=== PATIENT | female | born 1990 | race Caucasian/White ===

== ENCOUNTER 2016-08-14 07:52 | Emergency (ER) | payer OTHER ==
[~2016-08-14] VITALS: Ht 170.2 cm; Wt 145.0 kg
[~2016-08-14 07:52] MED LIST: ALBUTEROL SUL0.083 % IN; BACTRIM DS1 TAB OR; BENTYL20 MG OR; CEPHALEXIN500 MG PO; CIPRO500 MG OR; FIORICET PO; FLONASE NASAL50 MCG; IMITREX25 MG PO; LORTAB 5 OR; Levaquin PO; MACRODANTIN100 MG OR; MEDDOSEPAK PO; NAPROSYN500 MG PO; NAPROXEN500 MG OR; NO HOME MEDS; PHENTERMINE37.5 M1 PO; PREDNISONE5 MG PO; PRENATAL VITAMINS PO; PRENATAL1 TAB OR; PROAIR HFA IN; PROMETHAZINE25 MG OR; PYRIDIUM200 MG OR; QVAR80 MCG IN; ROBITUSSIN AC10 ML PO; TESSALON PER100 MG PO; TOPAMAX25 MG PO; TYLENOL500 MG OR; [UNRECOGNIZED DRUG - REMARK]
[2016-08-14] MEDS ORDERED: TOPAMAX50 M1 PO (07:58)
[2016-08-14] MEDS ORDERED: FLEXERIL PO (08:10)
[2016-08-14] MEDS ORDERED: MOTRIN800 MG PO (08:10)
[2016-08-14] MEDS ORDERED: TRAMADOL HYDROC50 MG PO (08:10)
[2016-08-14] MEDS ORDERED: PERCOCET 5/325M1 TAB PO (09:26)
[2016-08-14 09:33] VITALS: BP 116/56
== END 2016-08-14 09:33 | disposition home or self-care (01) | DRG 563 ==
LOC: ED 07:52
DX: S39.012A Strain of muscle, fascia and tendon of lower back, initial encounter (principal); G43.909 Migraine, unspecified, not intractable, without status migrainosus; J45.909 Unspecified asthma, uncomplicated; X50.0XXA Overexertion from strenuous movement or load, initial encounter

== ENCOUNTER 2016-08-29 09:34 | Emergency (ER) | payer SELFPAY ==
[~2016-08-29] VITALS: Ht 170.2 cm; Wt 145.0 kg
[~2016-08-29 09:34] MED LIST changes: +FLEXERIL PO; +MOTRIN800 MG PO; +PERCOCET 5/325M1 TAB PO; +TOPAMAX50 M1 PO; +TRAMADOL HYDROC50 MG PO
[2016-08-29] MEDS ORDERED: LORTAB 5-325 MG1 TAB PO (12:00)
[2016-08-29 12:10] VITALS: BP 139/77
== END 2016-08-29 12:10 | disposition home or self-care (01) | DRG 552 ==
LOC: ED 09:34
DX: M54.5 Low back pain (principal); M25.551 Pain in right hip; M25.552 Pain in left hip

== ENCOUNTER 2018-11-13 18:14 | Emergency (ER) | payer OTHER ==
[~2018-11-13] VITALS: Ht 170.2 cm; Wt 127.3 kg
[~2018-11-13 18:14] MED LIST changes: +LORTAB 5-325 MG1 TAB PO
[2018-11-13] MEDS ORDERED: ALBUTEROL SUL0.083 % IN (19:00)
[2018-11-13 19:34] LABS: HEMATOCRIT 37.7 % (37.0-47.0); IMMATURE GRANULOCYTES 0.3 % (0.0-5.0); MEAN CELL VOLUME 82.7 fL CALC (80.0-100.0); MEAN CORPUSCULAR HGB 26.3 pG CALC (26.0-32.0); MEAN CORPUSCULAR HGB CONC 31.8 g/L CALC (32.0-36.0); NEUT# 7.74 thou/uL (2.00-7.15); RED BLOOD COUNT 4.56 mill/uL (4.20-5.60); RED CELL DISTRI WIDTH 14.4 % (11.5-15.5)
[2018-11-13 19:52] LABS: ALBUMIN 4.3 g/dL (3.2-5.0); ALKALINE PHOSPHATASE 71 u/l (38-126); ANION GAP 16 (6-22 (CALC)); BILIRUBIN, TOTAL 0.6 mg/dL (0.0-1.4); BUN 14 mg/dL (7-17); BUN/CREATININE RATIO 22 (12-20 (CALC)); CARBON DIOXIDE 21 mmol/l (22-30); CHLORIDE 105 mmol/l (95-108); CREATININE 0.7 mg/dL (0.5-1.0); GFR > 60 ML/MIN (>=60 (CALC)); GFR FOR AFR.AMER. > 60 ML/MIN (>=60 (CALC)); POTASSIUM 3.4 mmol/l (3.5-5.1); SGOT/AST 17 u/l (14-36); SODIUM 139 mmol/l (137-146); TOTAL PROTEIN 7.4 g/dL (6.3-8.2)
[2018-11-13 20:04] LABS: MYOGLOBIN 45 ng/mL (0 - 62)
[2018-11-13 20:31] LABS: URINE BILIRUBIN - DIPSTICK NEGATIVE (NEGATIVE); URINE BLOOD DIPSTICK NEGATIVE (NEGATIVE); URINE COLOR YELLOW; URINE GLUCOSE - DIPSTICK NEGATIVE (NEGATIVE); URINE KETONE TRACE mg/dL (NEGATIVE); URINE LEUK ESTERASE NEGATIVE (NEGATIVE); URINE NITRITE - DIPSTICK NEGATIVE (Negative); URINE PROTEIN - DIPSTICK NEGATIVE (NEG-TRACE); URINE UROBILINOGEN - DIPSTICK 0.2 E.U./dL (0.2)
[2018-11-13 23:17] VITALS: BP 118/62
== END 2018-11-13 23:29 | disposition home or self-care (01) ==
LOC: ED 18:14
PROVIDERS: Emergency Medicine
DX: R07.89 Other chest pain (principal)
CPT/HCPCS: Q9967

== ENCOUNTER 2019-02-07 08:56 | Emergency (ER) | payer OTHER ==
[~2019-02-07] VITALS: Ht 170.2 cm; Wt 110.0 kg
[2019-02-07] MEDS ORDERED: ONDANSETRON4 MG PO (10:52)
[2019-02-07] MEDS ORDERED: TAM75CAP PO (10:52)
[2019-02-07 10:55] VITALS: BP 144/62
== END 2019-02-07 10:58 | disposition home or self-care (01) ==
LOC: ED 08:56
DX: J11.1 Influenza due to unidentified influenza virus with other respiratory manifestations (principal); J45.909 Unspecified asthma, uncomplicated

== ENCOUNTER 2020-02-24 09:29 | Emergency (ER) | payer SELFPAY ==
[~2020-02-24] VITALS: Ht 170.2 cm; Wt 136.1 kg
[~2020-02-24 09:29] MED LIST changes: +ONDANSETRON4 MG PO; +TAM75CAP PO
[2020-02-24 10:03] LABS: HEMATOCRIT 40.3 % (37.0-47.0); HEMOGLOBIN 12.3 g/dl (12.0-16.0); IMMATURE GRANULOCYTES 0.4 % (0.0-5.0); MEAN CELL VOLUME 82.6 fL CALC (80.0-100.0); MEAN CORPUSCULAR HGB 25.2 pG CALC (26.0-32.0); MEAN CORPUSCULAR HGB CONC 30.5 g/dL CAL (32.0-36.0); NEUT# 6.47 thou/uL (2.00-7.15); RED BLOOD COUNT 4.88 mill/uL (4.20-5.60); RED CELL DISTRI WIDTH 14.6 % (11.5-15.5)
[2020-02-24 10:19] LABS: HCG SERUM/URINE (NEG/POS) NEGATIVE (NEGATIVE)
[2020-02-24 10:23] LABS: ALBUMIN 4.5 g/dL (3.2-5.0); ALKALINE PHOSPHATASE 74 u/l (38-126); ANION GAP 15 (6-22 (CALC)); BILIRUBIN, TOTAL 0.4 mg/dL (0.0-1.4); BUN 16 mg/dL (7-17); BUN/CREATININE RATIO 20 (12-20 (CALC)); CARBON DIOXIDE 22 mmol/l (22-30); CHLORIDE 105 mmol/l (95-108); CREATININE 0.8 mg/dL (0.5-1.0); GFR > 60 ML/MIN (>=60 (CALC)); GFR FOR AFR.AMER. > 60 ML/MIN (>=60 (CALC)); SGOT/AST 41 u/l (14-36); SODIUM 138 mmol/l (137-146); TOTAL PROTEIN 8.4 g/dL (6.3-8.2)
[2020-02-24] MEDS ORDERED: MEDDOSEPAK PO (10:48)
[2020-02-24] MEDS ORDERED: KEFLEX500 M1 PO (10:48)
[2020-02-24] MEDS ORDERED: ROBITUSSIN AC10 ML PO (10:52)
[2020-02-24 10:56] VITALS: BP 133/74
== END 2020-02-24 11:11 | disposition home or self-care (01) | DRG 153 ==
LOC: ED 09:29
PROVIDERS: Emergency Medicine
DX: J06.9 Acute upper respiratory infection, unspecified (principal); J45.909 Unspecified asthma, uncomplicated; Z20.828 Contact with and (suspected) exposure to other viral communicable diseases

== ENCOUNTER 2020-05-14 06:56 | Emergency (ER) | payer MEDICAID ==
[~2020-05-14] VITALS: Ht 170.2 cm; Wt 136.0 kg
[~2020-05-14 06:56] MED LIST changes: +KEFLEX500 M1 PO
[2020-05-14] MEDS ORDERED: ERYTHROMYCIN O3.5 GM OU (07:46)
[2020-05-14 07:58] VITALS: BP 148/71
== END 2020-05-14 08:03 | disposition home or self-care (01) ==
LOC: ED 06:56
DX: J45.909 Unspecified asthma, uncomplicated (principal); H10.9 Unspecified conjunctivitis

== ENCOUNTER 2020-07-10 15:16 | Emergency (ER) | payer MEDICAID ==
[~2020-07-10] VITALS: Ht 170.2 cm; Wt 138.0 kg
[~2020-07-10 15:16] MED LIST changes: +ERYTHROMYCIN O3.5 GM OU
[2020-07-10 16:50] LABS: URINE BILIRUBIN - DIPSTICK NEGATIVE (NEGATIVE); URINE BLOOD DIPSTICK TRACE-INTACT (NEGATIVE); URINE COLOR YELLOW; URINE GLUCOSE - DIPSTICK NEGATIVE (NEGATIVE); URINE KETONE TRACE mg/dL (NEGATIVE); URINE LEUK ESTERASE NEGATIVE (NEGATIVE); URINE PROTEIN - DIPSTICK NEGATIVE (NEG-TRACE); URINE UROBILINOGEN - DIPSTICK 0.2 E.U./dL (0.2)
[2020-07-10 16:51] LABS: URINE NITRITE - DIPSTICK NEGATIVE (Negative)
[2020-07-10 16:53] LABS: HCG SERUM/URINE (NEG/POS) NEGATIVE (NEGATIVE)
[2020-07-10 17:07] LABS: HEMATOCRIT 42.5 % (37.0-47.0); IMMATURE GRANULOCYTES 0.4 % (0.0-5.0); MEAN CELL VOLUME 81.9 fL CALC (80.0-100.0); MEAN CORPUSCULAR HGB CONC 30.6 g/dL CAL (32.0-36.0); NEUT# 6.98 thou/uL (2.00-7.15); RED BLOOD COUNT 5.19 mill/uL (4.20-5.60); RED CELL DISTRI WIDTH 15.5 % (11.5-15.5)
[2020-07-10 17:27] LABS: ALBUMIN 4.8 g/dL (3.2-5.0); ALKALINE PHOSPHATASE 83 u/l (38-126); AMYLASE 63 u/l (30-110); BUN 13 mg/dL (7-17); BUN/CREATININE RATIO 15 (12-20 (CALC)); CHLORIDE 99 mmol/l (95-108); CREATININE 0.9 mg/dL (0.5-1.0); GFR > 60 ML/MIN (>=60 (CALC)); GFR FOR AFR.AMER. > 60 ML/MIN (>=60 (CALC)); LIPASE 87 u/l (23-300); POTASSIUM 3.9 mmol/l (3.5-5.1); SGOT/AST 23 u/l (14-36); SODIUM 138 mmol/l (137-146); TOTAL PROTEIN 8.6 g/dL (6.3-8.2)
[2020-07-10 17:28] LABS: ANION GAP 15 (6-22 (CALC)); BILIRUBIN, TOTAL 0.6 mg/dL (0.0-1.4); CARBON DIOXIDE 28 mmol/l (22-30)
[2020-07-10] MEDS ORDERED: ZITHROMAX250 MG PO (20:51)
[2020-07-10] MEDS ORDERED: MEDDOSEPAK PO (20:51)
[2020-07-10] MEDS ORDERED: ROBITUSSIN AC10 ML PO (20:52)
[2020-07-10 21:00] VITALS: BP 122/64
[2020-07-10] MEDS ORDERED: ONDANSETRON4 MG PO (21:05)
== END 2020-07-10 21:18 | disposition home or self-care (01) ==
LOC: ED 15:16
DX: J06.9 Acute upper respiratory infection, unspecified (principal); R11.2 Nausea with vomiting, unspecified; J45.909 Unspecified asthma, uncomplicated; Z20.822 Contact with and (suspected) exposure to COVID-19
CPT/HCPCS: Q9967

== ENCOUNTER 2020-12-04 09:04 | Emergency (ER) | payer MEDICAID ==
[~2020-12-04 09:04] MED LIST changes: +ZITHROMAX250 MG PO
[2020-12-04 09:33] LABS: URINE BILIRUBIN - DIPSTICK NEGATIVE (NEGATIVE); URINE COLOR YELLOW; URINE GLUCOSE - DIPSTICK NEGATIVE (NEGATIVE); URINE KETONE NEGATIVE (NEGATIVE); URINE LEUK ESTERASE NEGATIVE (NEGATIVE); URINE PH 5.5 (4.5-8.0); URINE PROTEIN - DIPSTICK NEGATIVE (NEG-TRACE); URINE SPECIFIC GRAVITY >=1.030; URINE UROBILINOGEN - DIPSTICK 0.2 E.U./dL (0.2)
[2020-12-04 09:37] LABS: URINE BLOOD DIPSTICK SMALL (NEGATIVE); URINE EPITHELIAL CELLS FEW EPI/hpf (0-FEW); URINE NITRITE - DIPSTICK NEGATIVE (Negative)
[2020-12-04 09:38] LABS: HCG SERUM/URINE (NEG/POS) NEGATIVE (NEGATIVE)
[2020-12-04] MEDS ORDERED: KEFLEX500 MG PO (10:06)
[2020-12-04 10:15] VITALS: BP 110/70
== END 2020-12-04 10:15 | disposition home or self-care (01) ==
LOC: ED 09:04
PROVIDERS: Emergency Medicine
DX: J45.909 Unspecified asthma, uncomplicated (principal); Z20.822 Contact with and (suspected) exposure to COVID-19

== ENCOUNTER 2021-02-13 18:47 | Emergency (ER) | payer MEDICAID ==
[~2021-02-13] VITALS: Ht 170.2 cm; Wt 140.0 kg
[~2021-02-13 18:47] MED LIST changes: +KEFLEX500 MG PO
[2021-02-13 19:58] LABS: HEMATOCRIT 40.3 % (37.0-47.0); HEMOGLOBIN 12.5 g/dl (12.0-16.0); IMMATURE GRANULOCYTES 0.5 % (0.0-5.0); MEAN CELL VOLUME 82.1 fL CALC (80.0-100.0); MEAN CORPUSCULAR HGB 25.5 pG CALC (26.0-32.0); NEUT# 6.3 thou/uL (2.00-7.15); RED BLOOD COUNT 4.91 mill/uL (4.20-5.60); RED CELL DISTRI WIDTH 15.5 % (11.5-15.5)
[2021-02-13 20:03] LABS: HCG SERUM/URINE (NEG/POS) NEGATIVE (NEGATIVE)
[2021-02-13 20:04] LABS: ALBUMIN 4.5 g/dL (3.2-5.0); ALKALINE PHOSPHATASE 101 u/l (38-126); ANION GAP 13 (6-22 (CALC)); BILIRUBIN, TOTAL 0.7 mg/dL (0.0-1.4); BUN 11 mg/dL (7-17); BUN/CREATININE RATIO 11 (12-20 (CALC)); CARBON DIOXIDE 25 mmol/l (22-30); CHLORIDE 104 mmol/l (95-108); GFR > 60 ML/MIN (>=60 (CALC)); GFR FOR AFR.AMER. > 60 ML/MIN (>=60 (CALC)); POTASSIUM 3.7 mmol/l (3.5-5.1); SGOT/AST 23 u/l (14-36); SODIUM 138 mmol/l (137-146); TOTAL PROTEIN 8.4 g/dL (6.3-8.2)
[2021-02-13] MEDS ORDERED: PHENTERMINE37.5 MG PO (20:14)
[2021-02-13] MEDS ORDERED: TOPIRAMATE50 MG PO (20:15)
[2021-02-13] MEDS ORDERED: CEPHALEXIN500 M1 PO (20:16)
[2021-02-13] MEDS ORDERED: GUAIATUSSIN PO (20:17)
[2021-02-13] MEDS ORDERED: ALBUTEROL SUL0.083 % IN (20:19)
[2021-02-13] MEDS ORDERED: MEDDOSEPAK PO (21:08)
[2021-02-13] MEDS ORDERED: VENTOLIN HFA IN (21:08)
[2021-02-13] MEDS ORDERED: ZPAK PO (21:08)
[2021-02-13 21:33] VITALS: BP 110/59
== END 2021-02-13 21:43 | disposition home or self-care (01) ==
LOC: ED 18:47
DX: J45.901 Unspecified asthma with (acute) exacerbation (principal); T48.6X6A Underdosing of antiasthmatics, initial encounter; Z91.128 Patient's intentional underdosing of medication regimen for other reason; Z20.822 Contact with and (suspected) exposure to COVID-19

== ENCOUNTER 2021-05-19 08:55 | Emergency (ER) | payer MEDICAID ==
[~2021-05-19] VITALS: Ht 170.2 cm; Wt 145.5 kg
[~2021-05-19 08:55] MED LIST changes: +CEPHALEXIN500 M1 PO; +GUAIATUSSIN PO; +PHENTERMINE37.5 MG PO; +TOPIRAMATE50 MG PO; +VENTOLIN HFA IN; +ZPAK PO
[2021-05-19 09:29] LABS: HEMATOCRIT 38.8 % (37.0-47.0); HEMOGLOBIN 11.7 g/dl (12.0-16.0); IMMATURE GRANULOCYTES 0.3 % (0.0-5.0); MEAN CORPUSCULAR HGB 25.3 pG CALC (26.0-32.0); MEAN CORPUSCULAR HGB CONC 30.2 g/dL CAL (32.0-36.0); NEUT# 4.83 thou/uL (2.00-7.15); RED BLOOD COUNT 4.62 mill/uL (4.20-5.60)
[2021-05-19 09:45] LABS: ALKALINE PHOSPHATASE 72 u/l (38-126); ANION GAP 14 (6-22 (CALC)); BUN 11 mg/dL (7-17); BUN/CREATININE RATIO 15 (12-20 (CALC)); CARBON DIOXIDE 23 mmol/l (22-30); CHLORIDE 103 mmol/l (95-108); CREATININE 0.8 mg/dL (0.5-1.0); GFR > 60 ML/MIN (>=60 (CALC)); GFR FOR AFR.AMER. > 60 ML/MIN (>=60 (CALC)); POTASSIUM 3.8 mmol/l (3.5-5.1); SGOT/AST 33 u/l (14-36); SODIUM 137 mmol/l (137-146); TOTAL PROTEIN 7.6 g/dL (6.3-8.2)
[2021-05-19 09:47] LABS: BILIRUBIN, TOTAL 0.4 mg/dL (0.0-1.4)
[2021-05-19] MEDS ORDERED: IPRATROPIU0.5 MG/3 M IN (09:54)
[2021-05-19] MEDS ORDERED: PREDNISONE50 MG PO (09:54)
[2021-05-19] MEDS ORDERED: DOXYCYCL HYC100 M4 PO (09:54)
[2021-05-19 11:30] VITALS: BP 148/63
== END 2021-05-19 11:30 | disposition home or self-care (01) ==
LOC: ED 08:55
PROVIDERS: Family Medicine
DX: J45.909 Unspecified asthma, uncomplicated (principal); E66.9 Obesity, unspecified; Z68.43 Body mass index [BMI] 50.0-59.9, adult; Z20.822 Contact with and (suspected) exposure to COVID-19

== ENCOUNTER 2021-05-21 16:37 | Emergency (ER) | payer MEDICAID ==
[~2021-05-21] VITALS: Ht 170.2 cm; Wt 145.0 kg
[~2021-05-21 16:37] MED LIST changes: +DOXYCYCL HYC100 M4 PO; +IPRATROPIU0.5 MG/3 M IN; +PREDNISONE50 MG PO
[2021-05-21 17:43] LABS: URINE BILIRUBIN - DIPSTICK NEGATIVE (NEGATIVE); URINE BLOOD DIPSTICK NEGATIVE (NEGATIVE); URINE COLOR YELLOW; URINE GLUCOSE - DIPSTICK NEGATIVE (NEGATIVE); URINE KETONE NEGATIVE (NEGATIVE); URINE LEUK ESTERASE NEGATIVE (NEGATIVE); URINE PROTEIN - DIPSTICK NEGATIVE (NEG-TRACE); URINE SPECIFIC GRAVITY >=1.030; URINE UROBILINOGEN - DIPSTICK 0.2 E.U./dL (0.2)
[2021-05-21 17:45] LABS: URINE NITRITE - DIPSTICK NEGATIVE (Negative)
[2021-05-21 17:48] LABS: HEMATOCRIT 37.1 % (37.0-47.0); HEMOGLOBIN 11.2 g/dl (12.0-16.0); IMMATURE GRANULOCYTES 0.7 % (0.0-5.0); MEAN CELL VOLUME 83.2 fL CALC (80.0-100.0); MEAN CORPUSCULAR HGB 25.1 pG CALC (26.0-32.0); MEAN CORPUSCULAR HGB CONC 30.2 g/dL CAL (32.0-36.0); NEUT# 10.61 thou/uL (2.00-7.15); RED BLOOD COUNT 4.46 mill/uL (4.20-5.60); RED CELL DISTRI WIDTH 15.5 % (11.5-15.5)
[2021-05-21 17:56] LABS: ALBUMIN 3.9 g/dL (3.2-5.0); ALKALINE PHOSPHATASE 69 u/l (38-126); ANION GAP 11 (6-22 (CALC)); BILIRUBIN, TOTAL 0.3 mg/dL (0.0-1.4); BUN 19 mg/dL (7-17); BUN/CREATININE RATIO 26 (12-20 (CALC)); CARBON DIOXIDE 24 mmol/l (22-30); CHLORIDE 107 mmol/l (95-108); CREATININE 0.7 mg/dL (0.5-1.0); GFR > 60 ML/MIN (>=60 (CALC)); GFR FOR AFR.AMER. > 60 ML/MIN (>=60 (CALC)); SGOT/AST 28 u/l (14-36); SODIUM 138 mmol/l (137-146); TOTAL PROTEIN 7.4 g/dL (6.3-8.2)
--- NOTE | 2021-05-21 20:55 | NUR ---
BREATHING TREATMENT GIVEN.
[2021-05-21] MEDS ORDERED: MEDDOSEPAK PO (22:55)
[2021-05-21] MEDS ORDERED: HYCODAN1 ML PO (22:55)
[2021-05-21 23:49] VITALS: BP 151/70
== END 2021-05-21 23:56 | disposition home or self-care (01) ==
LOC: ED 16:37
PROVIDERS: Emergency Medicine
DX: J45.901 Unspecified asthma with (acute) exacerbation (principal); Z20.822 Contact with and (suspected) exposure to COVID-19
CPT/HCPCS: J3475

== ENCOUNTER 2022-06-23 10:19 | Emergency (ER) | payer MEDICAID ==
[~2022-06-23] VITALS: Ht 170.2 cm; Wt 125.0 kg
[2022-06-23] VITALS (10 sets, daily range): BP systolic 117–140; BP diastolic 70–94
[~2022-06-23 10:19] MED LIST changes: +HYCODAN1 ML PO
[2022-06-23 10:58] LABS: BASO% 0.3 % (0-3); HEMATOCRIT 41.6 % (37.0-47.0); HEMOGLOBIN 12.7 g/dl (12.0-16.0); IMMATURE GRANULOCYTES 0.5 % (0.0-5.0); MEAN CELL VOLUME 82.4 fL CALC (80.0-100.0); MEAN CORPUSCULAR HGB 25.1 pG CALC (26.0-32.0); MEAN CORPUSCULAR HGB CONC 30.5 g/dL CAL (32.0-36.0); MONO% 12.5 % (2-13); NEUT# 4.6 thou/uL (2.00-7.15); NEUT% 70.7 % (42-76); RED BLOOD COUNT 5.05 mill/uL (4.20-5.60); RED CELL DISTRI WIDTH 16.2 % (11.5-15.5)
[2022-06-23 11:07] LABS: ALBUMIN 4.6 g/dL (3.2-5.0); ALKALINE PHOSPHATASE 63 u/l (38-126); BILIRUBIN, TOTAL 0.2 mg/dL (0.02-1.3); BUN 8 mg/dL (7-17); BUN/CREATININE RATIO 8 (12-20 (CALC)); CHLORIDE 104 mmol/l (95-108); GFR FOR AFR.AMER. > 60 ML/MIN (>=60 (CALC)); GFR OTHER RACES > 60 ML/MIN (>=60 (CALC)); SGOT/AST 33 u/l (14-36); SODIUM 136 mmol/l (137-146); TOTAL PROTEIN 7.9 g/dL (6.3-8.2)
[2022-06-23 11:10] LABS: ANION GAP 13 (6-22 (CALC)); CARBON DIOXIDE 22 mmol/l (22-30); POTASSIUM 3.2 mmol/l (3.5-5.1)
[2022-06-23] MEDS ORDERED: PREDNISONE50 MG PO (14:21)
== END 2022-06-23 14:44 | disposition home or self-care (01) ==
LOC: ED 10:19
PROVIDERS: Family Medicine
DX: J45.901 Unspecified asthma with (acute) exacerbation (principal); J11.1 Influenza due to unidentified influenza virus with other respiratory manifestations; E66.9 Obesity, unspecified; Z20.822 Contact with and (suspected) exposure to COVID-19
CPT/HCPCS: J3475

== ENCOUNTER 2022-07-09 21:51 | Emergency (ER) | payer MEDICAID ==
[~2022-07-09] VITALS: Ht 170.2 cm; Wt 127.0 kg
[2022-07-09] VITALS (8 sets, daily range): BP systolic 102–152; BP diastolic 40–104
[~2022-07-09 21:51] MED LIST changes: +PREDNISONE10 MG PO; +SINGULAIR10 MG PO; +WELLBUTRIN100 M2 PO
[2022-07-09 23:22] LABS: BASO% 0.1 % (0-3); EOS% 0.1 % (0-8); HEMATOCRIT 39.9 % (37.0-47.0); HEMOGLOBIN 12.3 g/dl (12.0-16.0); IMMATURE GRANULOCYTES 0.4 % (0.0-5.0); LYMPH% 9.8 % (15-41); MEAN CELL VOLUME 81.8 fL CALC (80.0-100.0); MEAN CORPUSCULAR HGB 25.2 pG CALC (26.0-32.0); MEAN CORPUSCULAR HGB CONC 30.8 g/dL CAL (32.0-36.0); MONO% 2.4 % (2-13); NEUT# 10.42 thou/uL (2.00-7.15); NEUT% 87.2 % (42-76); RED BLOOD COUNT 4.88 mill/uL (4.20-5.60); RED CELL DISTRI WIDTH 16.9 % (11.5-15.5)
[2022-07-10 00:29] VITALS: BP 102/61
[2022-07-10] MEDS ORDERED: IPRATROPIU0.5 MG/3 M IN (18:09)
== END 2022-07-10 01:52 | disposition home or self-care (01) ==
LOC: ED 21:51
PROVIDERS: Family Medicine
DX: J45.901 Unspecified asthma with (acute) exacerbation (principal); Z20.822 Contact with and (suspected) exposure to COVID-19
CPT/HCPCS: J3475

== ENCOUNTER 2023-05-27 13:14 | Observation (INO) | payer BC, MEDICAID ==
[2023-05-27] VITALS (24 sets, daily range): BP systolic 69–144; BP diastolic 36–124
[~2023-05-27] VITALS: Ht 170.2 cm; Wt 99.7 kg
[2023-05-27] MEDS ORDERED: MAGNESIUM SULFATE HEPTAHYDRATE 50 ML IV ONE (13:25)
[2023-05-27] MEDS ORDERED: methylPREDNISolone SODIUM SUCC 125 MG/2 ML SDV IV ONE (13:25)
[2023-05-27] MEDS ORDERED: IPRATROPIUM-Albuterol 0.5MG-2.5MG/3 ML NEB ONE ×2 (13:25→16:10)
[2023-05-27 13:42] LABS: BASO% 0.1 % (0-3); EOS% 0.7 % (0-8); HEMATOCRIT 39.7 % (37.0-47.0); HEMOGLOBIN 12.5 g/dl (12.0-16.0); IMMATURE GRANULOCYTES 0.1 % (0.0-5.0); MEAN CELL VOLUME 82.7 fL CALC (80.0-100.0); MEAN CORPUSCULAR HGB CONC 31.5 g/dL CAL (32.0-36.0); MONO% 9.7 % (2-13); NEUT# 3.62 thou/uL (2.00-7.15); NEUT% 47.3 % (42-76); RED BLOOD COUNT 4.8 mill/uL (4.20-5.60); RED CELL DISTRI WIDTH 15.1 % (11.5-15.5)
[2023-05-27] MEDS ORDERED: SODIUM CHLORIDE 0.9% 1,000 ML IV ONE (13:50)
[2023-05-27 13:53] LABS: ALBUMIN 4.2 g/dL (3.2-5.0); ALKALINE PHOSPHATASE 57 u/l (38-126); ANION GAP 13 (6-22 (CALC)); BILIRUBIN, TOTAL 0.4 mg/dL (0.02-1.3); BUN 8 mg/dL (7-17); BUN/CREATININE RATIO 10 (12-20 (CALC)); CARBON DIOXIDE 24 mmol/l (22-30); CHLORIDE 106 mmol/l (95-108); CREATININE 0.8 mg/dL (0.5-1.0); GFR FOR AFR.AMER. > 60 ML/MIN (>=60 (CALC)); GFR OTHER RACES > 60 ML/MIN (>=60 (CALC)); POTASSIUM 3.4 mmol/l (3.5-5.1); SODIUM 139 mmol/l (137-146); TOTAL PROTEIN 7.4 g/dL (6.3-8.2)
[2023-05-27] MEDS ORDERED: guaiFENesin-CODEINE 200-20 MG/10 ML UDC PO ONE (13:55)
[2023-05-27 13:56] LABS: SGOT/AST 50 u/l (14-36)
[2023-05-27 14:01] LABS: LYMPH% 42.1 % (15-41)
[2023-05-27] MEDS ORDERED: KETOROLAC TROMETHAMINE 30 MG/ML SDV IV ONE (15:50)
[2023-05-27] MEDS ORDERED: AZITHROMYCIN 500 MG in SODIUM CHLORIDE 0.9% 250 ML IV ONE (16:05)
[2023-05-27] MEDS ORDERED: ALBUTEROL SULFATE 8 GM INH IN PRN (16:35)
[2023-05-27] MEDS ORDERED: MAGNESIUM HYDROXIDE 30 ML UDC PO PRN (16:35)
[2023-05-27] MEDS ORDERED: SODIUM CHLORIDE 0.9% 1,000 ML IV PRN (16:35)
[2023-05-27] MEDS ORDERED: ACETAMINOPHEN 325 MG/TAB PO PRN (16:35)
[2023-05-27] MEDS ORDERED: KETOROLAC TROMETHAMINE 15 MG/ML SDV IV PRN (16:40)
[2023-05-27] MEDS ORDERED: GUAIFENESIN 200 MG/10 ML UDC PO PRN (17:05)
[2023-05-27] MEDS ORDERED: LISINOPRIL20 M1 PO (18:09)
[2023-05-27] MEDS ORDERED: INTUNIV4 MG PO (18:09)
[2023-05-27] MEDS ORDERED: LISINOPRIL 20 MG/TAB PO ONE (18:15)
[2023-05-27] MEDS ORDERED: IPRATROPIUM-Albuterol 0.5MG-2.5MG/3 ML NEB SCH (19:00)
[2023-05-27] MEDS ORDERED: ENOXAPARIN SODIUM 40 MG/0.4 ML SYR SC SCH (21:00)
[2023-05-27] MEDS ORDERED: MONTELUKAST SODIUM 10 MG/TAB PO SCH (21:00)
[2023-05-27] MEDS ORDERED: TOPIRAMATE 100 MG TAB PO SCH (21:00)
[2023-05-27] MEDS ORDERED: MELATONIN 3 MG/TAB PO SCH (21:00)
[2023-05-27] MEDS ORDERED: methylPREDNISolone Sod Succ 40 MG/ML SDV IV SCH (21:00)
[2023-05-28 00:17] LABS: URINE BILIRUBIN - DIPSTICK Negative (NEGATIVE); URINE BLOOD DIPSTICK Negative (NEGATIVE); URINE GLUCOSE - DIPSTICK 500 mg/dL (NEGATIVE); URINE KETONE Trace mg/dL (NEGATIVE); URINE LEUK ESTERASE Negative (NEGATIVE); URINE NITRITE - DIPSTICK Negative (Negative); URINE PH 5.5 (4.5-8.0); URINE PROTEIN - DIPSTICK Negative (NEG-TRACE); URINE UROBILINOGEN - DIPSTICK 0.2 E.U./dL (0.2)
[2023-05-28 00:23] LABS: URINE COLOR Yellow
[2023-05-28] MEDS ORDERED: IPRATROPIUM-Albuterol 0.5MG-2.5MG/3 ML ONE (03:39)
[2023-05-28 05:00] VITALS: BP 122/83
[2023-05-28 06:32] LABS: BASO% 0.2 % (0-3); HEMOGLOBIN 10.8 g/dl (12.0-16.0); IMMATURE GRANULOCYTES 0.2 % (0.0-5.0); LYMPH% 15.5 % (15-41); MEAN CELL VOLUME 82.7 fL CALC (80.0-100.0); MEAN CORPUSCULAR HGB 27.1 pG CALC (26.0-32.0); MEAN CORPUSCULAR HGB CONC 32.8 g/dL CAL (32.0-36.0); MONO% 4.3 % (2-13); NEUT# 3.55 thou/uL (2.00-7.15); NEUT% 79.8 % (42-76); RED BLOOD COUNT 3.98 mill/uL (4.20-5.60); RED CELL DISTRI WIDTH 15.6 % (11.5-15.5)
[2023-05-28 06:33] LABS: HEMATOCRIT 32.9 % (37.0-47.0)
[2023-05-28 06:46] LABS: ALBUMIN 3.5 g/dL (3.2-5.0); ALKALINE PHOSPHATASE 57 u/l (38-126); ANION GAP 10 (6-22 (CALC)); BUN 5 mg/dL (7-17); BUN/CREATININE RATIO 8 (12-20 (CALC)); CARBON DIOXIDE 24 mmol/l (22-30); CHLORIDE 111 mmol/l (95-108); CREATININE 0.6 mg/dL (0.5-1.0); GFR FOR AFR.AMER. > 60 ML/MIN (>=60 (CALC)); GFR OTHER RACES > 60 ML/MIN (>=60 (CALC)); MAGNESIUM 2.2 mg/dL (1.6-2.3); POTASSIUM 3.8 mmol/l (3.5-5.1); SGOT/AST 27 u/l (14-36); SODIUM 141 mmol/l (137-146); TOTAL PROTEIN 6.2 g/dL (6.3-8.2)
[2023-05-28 06:51] LABS: BILIRUBIN, TOTAL 0.2 mg/dL (0.02-1.3)
[2023-05-28 07:15] VITALS: BP 133/73
[2023-05-28] MEDS ORDERED: ALBUTEROL SULFATE 8 GM INH IN PRN (09:00)
[2023-05-28] MEDS ORDERED: buPROPion HCL 150 MG TAB SR PO SCH (09:00)
[2023-05-28] MEDS ORDERED: PREDNISONE50 MG PO (13:49)
[2023-05-28] MEDS ORDERED: TOPIRAMATE 25 MG TAB PO SCH (21:00)
[2023-05-28] MEDS ORDERED: TOPIRAMATE 100 MG TAB PO SCH (21:00)
== END 2023-05-28 14:38 | disposition home or self-care (01) | DRG 203 ==
LOC: ED 13:14 → ED-I 15:50 → ED 16:14 → MS2 16:15
PROVIDERS: Nurse Practitioner; ADMIT Student in an Organized Health Care Education/Training Program; ATTEND Student in an Organized Health Care Education/Training Program
DX: J45.41 Moderate persistent asthma with (acute) exacerbation (principal); I10 Essential (primary) hypertension; Z20.822 Contact with and (suspected) exposure to COVID-19
CPT/HCPCS: G0378; J1650; J3475